=== PATIENT | male | born 1995 | race Caucasian/White ===

== ENCOUNTER 2016-11-12 19:39 | Emergency (ER) | payer OTHER ==
[~2016-11-12] VITALS: Ht 182.9 cm; Wt 79.8 kg
--- NOTE | 2016-11-12 21:10 | REPUSA ---
CLINICAL INFORMATION: Pain. TECHNIQUE: 4 views of the right hand. COMPARISON: None. FINDINGS: The radiocarpal joint space is intact. Normal alignment of the carpal and metacarpal bones are noted. There is no abnormal periosteal reaction. No fracture is seen. The surrounding soft tissues are unre markable. IMPRESSION: No fracture or significant abnormality is identified.
[2016-11-12 21:41] VITALS: BP 143/80
== END 2016-11-12 21:42 | disposition home or self-care (01) ==
LOC: M ED 21:02
DX: S63.91XA Sprain of unspecified part of right wrist and hand, initial encounter (principal); W22.09XA Striking against other stationary object, initial encounter; Y92.89 Other specified places as the place of occurrence of the external cause; Y93.89 Activity, other specified; Y99.8 Other external cause status